=== PATIENT | female | born 1945 | race Two or more races ===

== ENCOUNTER → 2019-01-04 | Outpatient (CLI) | payer OTHER ==
[~2019-01-04] MED LIST: ENALAPRIL MALEA10 MG; LIPITOR20 MG
== END | disposition home or self-care (01) ==
LOC: NUCLEAR 11:00
DX: M81.0 Age-related osteoporosis without current pathological fracture (principal)

== ENCOUNTER → 2022-03-16 | Emergency (ER) | payer OTHER ==
[~2022-03-16] VITALS: Ht 149.9 cm; Wt 76.2 kg
[~2022-03-16] MED LIST changes: +CIPRO500 MG PO; +HYDROCHLOROTHIA25 MG; +METRONIDAZOLE500 MG PO; +PEPCID AC20 MG PO
== END | disposition home or self-care (01) ==
LOC: ER 06:42
DX: K52.9 Noninfective gastroenteritis and colitis, unspecified (principal); K62.5 Hemorrhage of anus and rectum; R10.10 Upper abdominal pain, unspecified; K76.0 Fatty (change of) liver, not elsewhere classified

== ENCOUNTER 2023-02-11 07:08 | Emergency (ER) | payer OTHER ==
[~2023-02-11] VITALS: Ht 142.2 cm; Wt 63.5 kg
[2023-02-11] MEDS ORDERED: VITAMIN B-121000 MC4 (07:32)
[2023-02-11] MEDS ORDERED: ORTHO DF 3,7751 EACH (07:32)
== END 2023-02-11 12:05 | disposition home or self-care (01) ==
LOC: ER 07:08
DX: R55 Syncope and collapse (principal); I10 Essential (primary) hypertension; S00.01XA Abrasion of scalp, initial encounter

== ENCOUNTER → 2023-11-12 | Emergency (ER) | payer OTHER ==
[~2023-11-12] VITALS: Ht 147.3 cm; Wt 65.8 kg
[~2023-11-12] MED LIST changes: +ORTHO DF 3,7751 EACH; +VITAMIN B-121000 MC4
[2023-11-12 10:28] LABS: HEMATOCRIT 41.7 % (36.0-45.00); HEMOGLOBIN 14.1 g/dL (12.0-15.00); MEAN CELL VOLUME 99.6 fL (80.00-100.00); MEAN CORPUSCULAR HEMOGLOBIN 33.6 pg (27.00-32.0); MEAN CORPUSCULAR HGB CONC 33.8 g/dl (32.0-36.0); PLATELET COUNT 294 K/uL (150-450); RED BLOOD COUNT 4.19 M/uL (4.00-6.00); RED CELL DISTRIBUTION WIDTH 13.3 % (11.5-14.5)
[2023-11-12 10:43] LABS: CALCIUM 9.7 mg/dL (8.5-10.1); CREATININE SERUM 0.66 mg/dL (0.55-1.02); GFR 86.39; POTASSIUM 4.11 mEq/L (3.5-5.1)
== END | disposition home or self-care (01) ==
LOC: ER 08:07
PROVIDERS: Emergency Medicine
DX: R00.2 Palpitations (principal); F43.9 Reaction to severe stress, unspecified; I10 Essential (primary) hypertension

== ENCOUNTER 2024-06-13 09:38 | Outpatient (CLI) | payer OTHER | END 2024-06-13 09:45 | disposition home or self-care (01) | LOC: SONOGRAMA 09:38 | DX: M75.81 Other shoulder lesions, right shoulder (principal) ==

== ENCOUNTER 2024-12-18 13:51 | Outpatient (CLI) | payer OTHER | END 2024-12-18 13:57 | disposition home or self-care (01) | LOC: MAMO-SONO 13:51 | PROVIDERS: ATTEND Internal Medicine | DX: N60.21 Fibroadenosis of right breast (principal); N60.22 Fibroadenosis of left breast; Z12.31 Encounter for screening mammogram for malignant neoplasm of breast; I10 Essential (primary) hypertension; I35.1 Nonrheumatic aortic (valve) insufficiency; I34.0 Nonrheumatic mitral (valve) insufficiency; I36.1 Nonrheumatic tricuspid (valve) insufficiency; I67.2 Cerebral atherosclerosis; G93.0 Cerebral cysts; E78.2 Mixed hyperlipidemia; R73.01 Impaired fasting glucose; J30.9 Allergic rhinitis, unspecified; K21.9 Gastro-esophageal reflux disease without esophagitis; K64.9 Unspecified hemorrhoids; K52.9 Noninfective gastroenteritis and colitis, unspecified; N39.3 Stress incontinence (female) (male); N39.0 Urinary tract infection, site not specified; R55 Syncope and collapse; M85.2 Hyperostosis of skull; E23.6 Other disorders of pituitary gland; L25.9 Unspecified contact dermatitis, unspecified cause; E55.9 Vitamin D deficiency, unspecified; E53.8 Deficiency of other specified B group vitamins; Z68.28 Body mass index [BMI] 28.0-28.9, adult; M81.0 Age-related osteoporosis without current pathological fracture ==

== ENCOUNTER 2025-01-02 13:11 | Outpatient (CLI) | payer OTHER | END 2025-01-02 13:13 | disposition home or self-care (01) | LOC: NUCLEAR 13:11 | PROVIDERS: ATTEND Internal Medicine | DX: M81.0 Age-related osteoporosis without current pathological fracture (principal) ==